=== PATIENT | female | born 1995 | race Two or more races ===

== ENCOUNTER 2025-07-16 16:30 | Emergency (ER) | payer MEDICAID, OTHER ==
[~2025-07-16] VITALS: Ht 154.9 cm; Wt 55.6 kg
--- NOTE | 2025-07-16 17:18 | ED.PDOC ---
GI ASSESSMENT HPI Comments HPI: 30 y/o F, with no prior medical history presents to the ED for CC of epigastric abdominal pain. Patient states, she has been experiencing symptoms of intermittent "sharp" epigastric abdominal pain sudden onset, last night (07/15/25). Pain is nonradiating. Patient reports d/t symptoms not ceasing she resorted to self induce vomiting in hopes of alleviating symptoms. Symptoms however, did not improve and patient then took a detox tea at approximately 0200 this morning (07/16/25) which was followed by loose dark green bowels. Patient comments, to have positive sick contacts at home with nephew experiencing same symptoms. Patient denies recent travel, sick contacts, or changes in diet. No other symptoms or modifying factors are present at this time. Initial Vitals BP: HR: RR: O2 Sat: Temp: Past Medical history: DENIES ANY Past Surgical history: C-sections Medications: DENIES ANY Social History: Denies smoking, ETOH, and drug use. Allergies: NKDA Puatu: GI symptoms HPI: Poor Historian. REVIEW OF SYSTEMS: CONSTITUTIONAL: Denies acute: fever, diaphoresis, chills, HEAD: Denies acute: headache, photophobia Eyes: Denies acute: Double vision, vision loss, eye pain, eye discharge. EARS: Denies acute: tinnitus, hearing loss, ear discharge, ear pain, THROAT: Denies acute: sore throat, swelling, difficulty swallowing , pain with swallowing, change in voice. NECK: Denies acute: neck pain, neck swelling, stiff neck. HEART: Denies acute : chest pain, palpitations, LUNGS: Denies acute: SOB, wheezing, cough, hemoptysis ABDOMEN: Denies acute: Nausea, Vomiting, , melena , hematemesis, hematochezia SKIN: Denies acute: rash, redness, lesions, itchiness. EXTREMITIES: Denies acute: calf pain, numbness, tingling, weakness, denies pain in extremity. Denies acute: Low back pain. Neuro: Denies acute: focal neurological deficit, motor or sensory focal neurological deficit, tremors, seizure like activity, confusion, dizziness, change in mental status, loss of bowel or bladder function, cauda equina like symptoms. : Denies acute: dysuria, hematuria, flank pain, increase in urinary frequency. PSYCH: Denies acute: hallucination, suicidal ideation, homicidal ideation. FEMALE: Denies acute: abnormal vaginal bleeding, foul odor, unusual discharge. PHYSICAL EXAM: General: -----mild---acute distress, awake and alert. Head: normocephalic, atraumatic. Neck: supple, trachea is midline, no swelling. Throat: Normal phonation. Eyes:, no erythema, no purulent discharge, no proptosis, no icterus. Heart: regular rate, regular rhythm, no significant murmur appreciated. Lungs: no apparent respiratory distress, Able to speak in full sentences. No wheezing, no rhonchi, no crackles. No stridors Clear to auscultation bilaterally. Abdomen: Epigastric tender to palpation, non distended, soft, no guarding, no rebound, + bowel sounds. Neuro: Awake, Alert, oriented to name, self, situation, follows commands GCS=15. Speech is normal. Skin: no petechia, no purpura, no cyanosis, non-pale, not jaundice. Lower extremities: --no - Pitting edema no deformity, no focal swelling, no calf TTP. Makes eye contact. moves all four extremities. Face: no apparent facial droop. Ambulating in the ED independently. ED COURSE: DISCLAIMER: This medical document was created using an electronic medical record system with voice recognition software and computerized dictation system. Although this document has been carefully reviewed, there might still be some phonetic and typographical errors. Occasional wrong-word or "sound-alike" substitutions may have occurred due to the inherent limitations of voice recognition software. These areas are purely typographical due to imperfections of the software programs and do not reflect any compromise in the patient's medical care. Please read the chart carefully and recognize, using context, where these substitutions have occurred. Chief Complaint: Nausea/Vomiting Time Seen by MD: 17:15 Reviewed Notes: Nurses Notes, Medications, Allergies Allergies: Coded Allergies: NO KNOWN ALLERGIES (Unverified , 07/16/25) Information Source: Patient Mode of Arrival: Ambulatory Timing: Hours Duration: Since onset Prehospital treatment: None Quality: Sharp Vomitus: Watery Stool: Normal Severity: Moderate Recent: None Recent Hx of: None Pain Location: Epigastric Modifying Factors: Nothing Associated sign and symptoms: Nausea, Vomiting, Abdominal Pain Was a procedure done? Was a procedure done?: No GI differential Dx Differential Diagnosis: Gastritis/PUD, Gastroenteritis, Electrolyte Imbalance, Food Poisoning, Bacterial, Viral X-Ray, Labs, Meds, VS Vital Signs Date Time Temp Pulse Resp B/P (MAP) Pulse Ox O2 Delivery O2 Flow Rate FiO2 07/16/25 20:05 98.5 97 17 145/98 (114) 98 98.5 07/16/25 16:33 98.2 96 16 137/96 96 98.2 Lab Test 07/16/25 17:00 07/16/25 16:39 07/16/25 00:00 Range/Units White Blood Count 10.8 4.4-10.8 10^3/uL Red Blood Count 4.89 4.0-5.20 10^6/uL Hemoglobin 15.3 12.2-16.2 g/dL Hematocrit 44.4 36.0-46.0 % Mean Corpuscular Volume 90.9 80.0-100.0 fL Mean Corpuscular Hemoglobin 31.3 28.0-32.0 pg Mean Corpuscular Hemoglobin Concent 34.4 32.0-36.0 g/dL Red Cell Distribution Width 13.1 11.8-14.3 % Platelet Count 219 140-450 10^3/uL Mean Platelet Volume 8.7 6.9-10.8 fL Neutrophils (%) (Auto) 81.9 H 37.0-80.0 % Lymphocytes (%) (Auto) 10.6 10.0-50.0 % Monocytes (%) (Auto) 6.6 0.0-12.0 % Eosinophils (%) (Auto) 0.8 0.0-7.0 % Basophils (%) (Auto) 0.1 0.0-2.0 % Neutrophils # (Auto) 8.9 H 1.6-8.6 10 ^3/uL Lymphocytes # (Auto) 1.1 0.4-5.4 10 ^3/uL Monocytes # (Auto) 0.7 0-1.3 10 ^3/uL Eosinophils # (Auto) 0.1 0-0.8 10 ^3/uL Basophils # (Auto) 0 0-0.2 10 ^3/uL Nucleated Red Blood Cells 0.0 % Sodium Level 135 L 136-145 mmol/L Potassium Level 3.8 3.5-5.1 mmol/L Chloride Level 103 98-107 mmol/L Carbon Dioxide Level 21 20-31 mmol/L Anion Gap 11 5-15 Blood Urea Nitrogen 6 L 9-23 mg/dL Creatinine 0.64 0.550-1.02 mg/dL Glomerular Filtration Rate Calc 120 >90 mL/min BUN/Creatinine Ratio 9.4 L 10.0-20.0 Serum Glucose 118 H 74-106 mg/dL Calcium Level 8.7 8.7-10.4 mg/dL Total Bilirubin 0.6 0.2-1.0 mg/dL Aspartate Amino Transferase (AST) 19 13-40 U/L Alanine Aminotransferase (ALT) 52 H 7-40 U/L Alkaline Phosphatase 65 46-116 U/L C-Reactive Protein High Sensitivity 1.79 H <1.0 mg/dL Total Protein 7.8 5.7-8.2 g/dL Albumin 4.3 3.2-4.8 g/dL Lipase 34 12-53 U/L Urine Color Yellow Yellow Urine Clarity Turbid H Clear Urine pH 7.0 5.0-9.0 Urine Specific [place] 1.023 1.001-1.035 Urine Protein Negative Negative Urine Ketones Negative Negative Urine Blood Negative Negative /uL Urine Nitrite Negative Negative Urine Bilirubin Negative Negative Urine Urobilinogen Normal Negative mg/dL Urine Leukocyte Esterase Negative Negative /uL Urine RBC 4 0 - 4 /hpf Urine Microscopic WBC 1 0-5 /HPF Urine Squamous Epithelial Cells Mod <5 /hpf Urine Bacteria Few H None Seen /hpf Urine Hyaline Casts Few 0 - 2 /lpf Urine Glucose Normal Normal mg/dL Urine Test Negative Negative SARS-CoV-2 Antigen (Rapid) Negative NEGATIVE Current Medications Medications (Trade) Dose Ordered Sig/Abelino Route Start Time Stop Time Status Last Admin Sodium Chloride 1,000 ml @ 1,000 mls/hr Q1H ONCE IV 07/16/25 16:45 07/16/25 17:44 DC 07/16/25 18:02 Ondansetron HCl (Zofran) 8 mg ONCE ONCE IV 07/16/25 16:45 07/16/25 16:46 DC 07/16/25 18:[address] [address] Ph: [phone] DIAGNOSTIC IMAGING Diagnostic Imaging Report : [id number] Signed PATIENT: ANITHA KHOURY ACCT: [id number] UNIT: [id number] : 1995 LOC: ER ROOM / BED: / AGE / SEX: 30 / F ADM STATUS: REG ER SERVICE [id number] ORDERING PHYSICIAN: WINSTON VARELA DO PROCEDURE(s): ABPL - CT AB PEL WO CON-NO ORAL OR IV REASON: abd pain n/v/d ORDER NUMBER(s): [id number], ACCESSION NUMBER(s): [id number] Exam: CT CT AB PEL WO CON-NO ORAL OR IV History: abd pain n/v/d Comparison Study: None TECHNIQUE: Multidetector CT of the abdomen and pelvis was performed from lung bases to pubic symphysis. Imaging was performed without IV contrast. Axial, coronal, and sagittal multiplanar reformats were obtained from the axial data set by the technologist. RADIATION DOSE: CTDI vol 6.35 mGy. DLP 326.87 mGy.cm Findings: Limited evaluation of the solid organs in the absence of IV contrast. Lungs: The lung bases are clear. Liver: Unremarkable. Spleen: Unremarkable. Pancreas: Unremarkable. Gallbladder: Unremarkable. Adrenals: Unremarkable Kidneys: Unremarkable. Pelvic Viscera: Unremarkable. Vasculature: Unremarkable. Retroperitoneum: Shotty retroperitoneal nodes. Bowel: There is prominent small bowel wall thickening predominantly involving the ileum/terminal ileum. There is minimal adjacent stranding. Musculoskeletal: Unremarkable. Soft tissues: Unremarkable Impression: 1. Prominent wall thickening involving the ileum including the terminal ileum, suggesting infectious/ inflammatory process in the appropriate clinical setting. ATED BY: JOAN JOHNSON MD DICTATED DATE/TIME: 07/16/251927 SIGNED BY: JOAN JOHNSON MD SIGNED DATE/TIME: 07/16/251927 CC: Time of 1ST Reevaluation: 17:45 Reevaluation 1ST: Unchanged Patient Education/Counseling: Diagnosis, Treatment Family Education/Counseling: No Family Present SEPSIS Sepsis Screen Date sepsis recognized/suspect: Jul 16, 2025 Time Sepsis recognized/suspect: 1633 Recent Procedure: No On Antibiotic Therapy: No Respiratory Rate >20: No Heart Rate >90: Yes Temp<36 C (96.8 F) or >38.3 C: No SBP <90 or MAP <65 mmHG: No New Acute Mental Status Change: No Is the patient on CPAP, BIPAP,: No Physician Orders Stool Wbc (07/16/25 16:39) Blood Culture (07/16/25 16:39) Ova & Parasite Exam (07/16/25 16:39) Stool Bacterial Culture (07/16/25 16:39) Ct Ab Pel Wo Con-No Oral Or Iv (07/16/25 18:56) Sucralfate Tab (Carafate Tab) (07/16/25 22:00) Pantoprazole Tablet (Protonix Tablet) (07/16/25 22:00) Lidocaine 2% Viscous (Xylocaine 2% Visco (07/16/25 22:00) Vital Signs Date Time Temp Pulse Resp B/P (MAP) Pulse Ox O2 Delivery O2 Flow Rate FiO2 07/16/25 20:05 98.5 97 17 145/98 (114) 98 98.5 07/16/25 16:33 98.2 96 16 137/96 96 98.2 Laboratory Tests Test 07/16/25 17:00 White Blood Count 10.8 10^3/uL (4.4-10.8) Medications Medications Dose Ordered Sig/Abelino Route Start Time Stop Time Status Last Admin Dose Admin Ondansetron HCl 8 mg ONCE ONCE IV 07/16/25 16:45 07/16/25 16:46 DC 07/16/25 18:02 Sodium Chloride 1,000 ml @ 1,000 mls/hr Q1H ONCE IV 07/16/25 16:45 07/16/25 17:44 DC 07/16/25 18:02 Departure 1 Departure Time of Disposition: 21:56 Impression: Primary Impression: Epigastric pain Additional Impression: Nausea vomiting and diarrhea Disposition: 01 HOME / SELF CARE / HOMELESS Condition: Stable Additional Instructions: Additional instructions: Please read all instructions provided in this packet carefully. You MUST follow-up with your primary care/family doctor in 1 to 2 days. If you are unable to see your primary care/family doctor, please return to our emergency room for re-assessment and re-evaluation in 1 to 2 days. Return to the emergency room here in our facility or to the nearest ER [facility] if your symptoms change or worsen. CONSULTATIONS: you MUST Follow-up for consultation as soon as possible with: -gastroenterology in 1-2 days. Please call for appointment You MUST call the consultants office yourself to make an appointment. You may need to arrange that through your insurance and/or your primary/family doctor. If you are unable to see the data security consultant in 1 to 2 days, you must return to our emergency room (or any other ER of your choice) for re-assessment and re- evaluation. Adequate fluid hydration. Although you have been discharged from the Emergency Department, this does not mean that you have a "clean bill of health". No definitive diagnosis for your symptoms has been made today. It is possible that you are in the process of de veloping a serious illness. This is why you must return to the ED without fail if any new or worsening symptoms develop. Avoid fatty greasy spicy food. Avoid caffeinated products. Avoid NSAIDs. Below is a copy of your radiological report for follow up: [place] [address] Ph: [phone] DIAGNOSTIC IMAGING Diagnostic Imaging Report : [id number] Signed PATIENT: ANITHA KHOURY ACCT: [id number] UNIT: [id number] : 1995 LOC: ER ROOM / BED: / AGE / SEX: 30 / F ADM STATUS: REG ER SERVICE [id number] ORDERING PHYSICIAN: WINSTON VARELA DO PROCEDURE(s): ABPL - CT AB PEL WO CON-NO ORAL OR IV REASON: abd pain n/v/d ORDER NUMBER(s): [id number], ACCESSION NUMBER(s): [id number] Exam: CT CT AB PEL WO CON-NO ORAL OR IV History: abd pain n/v/d Comparison Study: None TECHNIQUE: Multidetector CT of the abdomen and pelvis was performed from lung bases to pubic symphysis. Imaging was performed without IV contrast. Axial, coronal, and sagittal multiplanar reformats were obtained from the axial data set by the technologist. RADIATION DOSE: CTDI vol 6.35 mGy. DLP 326.87 mGy.cm Findings: Limited evaluation of the solid organs in the absence of IV contrast. Lungs: The lung bases are clear. Liver: Unremarkable. Spleen: Unremarkable. Pancreas: Unremarkable. Gallbladder: Unremarkable. Adrenals: Unremarkable Kidneys: Unremarkable. Pelvic Viscera: Unremarkable. Vasculature: Unremarkable. Retroperitoneum: Shotty retroperitoneal nodes. Bowel: There is prominent small bowel wall thickening predominantly involving the ileum/terminal ileum. There is minimal adjacent stranding. Musculoskeletal: Unremarkable. Soft tissues: Unremarkable Impression: 1. Prominent wall thickening involving the ileum including the terminal ileum, suggesting infectious/ inflammatory process in the appropriate clinical setting. ATED BY: JOAN JOHNSON MD DICTATED DATE/TIME: 07/16/251927 SIGNED BY: JOAN JOHNSON MD SIGNED DATE/TIME: 07/16/251927 CC: Discharged With: Self Critical Care Note Critical Care Time?: No I personally scribed for WINSTON VARELA DO ([email or web address]) on 07/16/25 at 17:18. Electronically submitted by Hortencia Bustillos ([email or web address]). I personally scribed for WINSTON VARELA DO ([email or web address]) on 07/16/25 at 18:57. Electronically submitted by Hortencia Bustillos ([email or web address]). I personally scribed for WINSTON VARELA DO ([email or web address]) on 07/16/25 at 19:00. Electronically submitted by Hortencia Bustillos ([email or web address]). I personally scribed for WINSTON VARELA DO ([email or web address]) on 07/16/25 at 21:59. Yun ctronically submitted by Hortencia Bustillos ([email or web address]). WINSTON VARELA DO Jul 16, 2025 17:18
[2025-07-16 17:34] LABS: Hematocrit 44.4 % (36.0-46.0); Hemoglobin 15.3 g/dL (12.2-16.2); Mean Corpuscular Hemoglobin 31.3 pg (28.0-32.0); Mean Corpuscular Volume 90.9 fL (80.0-100.0); Nucleated Red Blood Cells % 0.0 %
[2025-07-16 17:50] LABS: Albumin 4.3 g/dL (3.2-4.8); Alkaline Phosphatase 65 U/L (46-116); Anion Gap 11 (5-15); BUN/Creatinine Ratio 9.4 (10.0-20.0); Calcium 8.7 mg/dL (8.7-10.4); Carbon Dioxide 21 mmol/L (20-31); Chloride 103 mmol/L (98-107); Lipase 34 U/L (12-53); Potassium 3.8 mmol/L (3.5-5.1); Total Protein 7.8 g/dL (5.7-8.2)
[2025-07-16 17:51] LABS: Bilirubin, Total 0.6 mg/dL (0.2-1.0)
[2025-07-16] MEDS: SODIUM CHLORIDE 0.9% 1,000 ML IV ONE (18:02)
[2025-07-16] MEDS: ONDANSETRON HCL 4 MG/2 ML VIAL IV ONE (18:02)
[2025-07-16 18:17] LABS: Alanine Aminotransferase 52 U/L (7-40); Blood Urea Nitrogen 6 mg/dL (9-23); Glucose 118 mg/dL (74-106); Sodium 135 mmol/L (136-145)
[2025-07-16 18:22] LABS: Urine Protein, UAD Negative (Negative)
--- NOTE | 2025-07-16 19:30 | DVH ---
Exam: CT CT AB PEL WO CON-NO ORAL OR IV History: abd pain n/v/d Comparison Study: None TECHNIQUE: Multidetector CT of the abdomen and pelvis was performed from lung bases to pubic symphysi s. Imaging was performed without IV contrast. Axial, coronal, and sagittal multiplanar reformats were obtained from the axial data set by the technologist. RADIATION DOSE: CTDI vol 6.35 mGy. DLP 326.87 mGy.cm Findings: Limited evaluation of the solid organs in the absence of IV contrast. Lungs: The lung bases are clear. Liver: Unremarkable. Spleen: Unremarkable. Pancreas: Unremarkable. Gallbladder: Unremarkable. Adrenals: Unremarkable Kidneys: Unremarkable. Pelvic Viscera: Unremarkable. Vasculature: Unremarkable. Retroperitoneum: Shotty retroperitoneal nodes. Bowel: There is prominent small bowel wall thickening predominantly involving the ileum/terminal ileu m. There is minimal adjacent stranding. Musculoskeletal: Unremarkable. Soft tissues: Unremarkable Impression: 1. Prominent wall thickening involving the ileum including the terminal ileum, suggesting infectious/ inflammatory process in the appropriate clinical setting.
[2025-07-16 20:05] VITALS: TEMP 98.5
[2025-07-16 20:52] LABS: COVID19 ANTIGEN SOFIA FIA NEGATIVE (NEGATIVE)
[2025-07-16] MEDS: LIDOCAINE VISCOUS 2% 15ML UD PO ONE (23:11)
[2025-07-16] MEDS: PANTOPRAZOLE 40 MG TAB PO ONE (23:11)
[2025-07-16] MEDS: SUCRALFATE 1 GM TAB PO ONE (23:11)
[2025-07-16 23:18] VITALS: BP 133/95
[2025-07-16 23:19] VITALS: PULSE 75; RESP 16; O2SAT 100
== END 2025-07-16 23:29 | disposition home or self-care (01) ==
LOC: ER 16:30
DX: R10.13 Epigastric pain (principal); R11.2 Nausea with vomiting, unspecified; R19.7 Diarrhea, unspecified; Z79.899 Other long term (current) drug therapy; Z20.822 Contact with and (suspected) exposure to COVID-19
CPT/HCPCS: 36415; 74176; 80053; 81001; 81025; 83690; 85025; 86141; 87040; 87426; 96361; 96374; 99285; J2405; J7030